=== PATIENT | female | born 1985 | race Caucasian/White ===

== ENCOUNTER 2016-11-21 04:42 | Outpatient (CLI) | payer OTHER ==
[~2016-11-21] VITALS: Ht 157.5 cm; Wt 74.0 kg
[2016-11-21 04:47] VITALS: Ht 157.5 cm; Wt 74.0 kg
[2016-11-21 05:12] VITALS: BP 120/70; PULSE 81; RESP 18
[2016-11-21] MEDS ORDERED: PRENAT PO (05:14)
--- NOTE | 2016-11-21 05:48 | HP ---
Date/Time of Note Date/Time of Note DATE: 11/21/16 TIME: 05:42 OB - History Hx of Present Free Text/Dictation OB Triage Pt is a 31yo at 37+6 by 15wk U/S presenting with c/o painful UCs since 023. Reports normal FM, denies LOF or VB. care has been with Dr. Trjuillo. Pt brought records with her. Estimated Due Date: Dec 06, 2016 : 4 Para: 2 Care: Good Care Ultrasounds: Normal mid trimester US Obstetrical Complications: None Medical Complications: None Other Concerns: PCN Allergy Past Family/Social History * Past Medical, Surgical, Family and Obstetric Histories reviewed from chart. Blood Type: O+ Rubella: immune RPR/VDRL: Negative GBS Status: Negative HBsAG: Negative OB Admission Exam Vital Signs Vital Signs Vital Signs Date Time Temp Pulse Resp B/P Pulse Ox O2 Delivery O2 Flow Rate FiO2 11/21/16 05:12 98.0 81 18 120/70 Room Air Physical Exam HEENT: WNL Heart: Rhythm Normal Lungs: Clear Abdomen: WNL Extremities: Normal Cervical Dilatation: 1cm Effacement: Other (70%) Station: -3 Membranes: Intact Heart Rate: 150's Accelerations: Accelerations Present Decelerations: No Decelerations (possible small variable when initially placed on monitor, however FHT thereafter is without decels) Varibility: Moderate Contractions on Admission: 6-10 Minutes Apart (5-6 min) OB Assessment/Plan Other Assessment: Early Labor Reactive NST GBS negative Other plan: Plan to d/c home given early stage of labor. Pt amenable to this. FWB reassuring GBS negative FKC, ROM, Labor precautions reviewed. Pt has f/up on 11/24/16 w/primary OB and she was advised to attend this appointment if she has not yet delivered by that time. Questions answered to pt and her partners satisfaction. NUBIA VILLEGAS MD Nov 21, 2016 05:48
== END 2016-11-21 05:47 | disposition home or self-care (01) ==
LOC: OBT 04:42 → L-D 04:43 → OBT 05:47
PROVIDERS: ATTEND Obstetrics & Gynecology
DX: O60.03 Preterm labor without delivery, third trimester (principal); Z3A.39 39 weeks gestation of pregnancy
CPT/HCPCS: G0463

== ENCOUNTER 2016-11-21 21:57 | Inpatient (IN) | payer OTHER ==
[~2016-11-21] VITALS: Ht 167.6 cm; Wt 74.3 kg
[~2016-11-21 21:57] MED LIST: PRENAT PO
[2016-11-21 22:03] VITALS: Ht 167.6 cm; Wt 74.3 kg
[2016-11-21 22:06] VITALS: BP 123/72; PULSE 85; RESP 18
[2016-11-22] MEDS ORDERED: METHYLERGONOVINE 0.2 MG INJ IM PRN ×2 (00:30→15:00)
[2016-11-22] MEDS ORDERED: MISOPROSTOL 200 MCG TAB PR PRN ×2 (00:30→15:00)
[2016-11-22] MEDS ORDERED: LIDOCAINE 1% (MPF) 30 ML INJ INJ PRN (00:30)
[2016-11-22] MEDS ORDERED: IBUPROFEN 600 MG TAB PO PRN (00:30)
[2016-11-22] MEDS ORDERED: CARBOPROST 250 MCG INJ IM PRN ×2 (00:30→15:00)
[2016-11-22] MEDS ORDERED: OXYTOCIN 30 UNITS/LR 500 ML IV PRN ×2 (00:30→15:00)
[2016-11-22] MEDS ORDERED: BUTORPHANOL 2 MG INJ IV PRN ×2 (00:30)
[2016-11-22] MEDS ORDERED: ACETAMINOPHEN/CODEINE #3 TAB PO PRN ×2 (00:30→15:00)
[2016-11-22] MEDS ORDERED: OXYTOCIN 30 UNITS/LR 500 ML IV SCH ×4 (00:30→15:00)
[2016-11-22] MEDS ORDERED: LACTATED RINGER'S 1,000 ML IV PRN (00:30)
[2016-11-22 01:05] LABS: PARTIAL THROMBOPLASTIN TIME 26.4 Sec (25.0-35.0)
[2016-11-22 01:27] LABS: INR 0.91; PROTIME 12.2 Sec (12.2-14.2)
[2016-11-22] MEDS: LACTATED RINGER'S 1,000 ML IV SCH ×4 (01:29→11:23)
[2016-11-22 01:36] LABS: HEMATOCRIT 39.1 % (37.0-47.0); HEMOGLOBIN 13.3 g/dl (12.0-16.0); MEAN CORPUSCULAR HEMOGLOBIN 31.5 pg (29.0-33.0); MEAN CORPUSCULAR VOLUME 92.7 fl (82.0-101.0); RED BLOOD COUNT 4.22 10^6/ul (4.20-5.40)
[2016-11-22 01:37] LABS: BASOPHILS % 0.2 % (0.0-2.0); EOSINOPHILS % 0.5 % (0.0-7.0); LYMPHOCYTES % 13.7 % (15.0-51.0); MEAN PLATELET VOLUME 11.8 fl (7.4-10.4); MONOCYTES % 7.5 % (0.0-11.0); NEUTROPHILS % 77.4 % (39.0-77.0); PLATELET COUNT 174 10^3/UL (140-440); RED CELL DISTRIBUTION WIDTH 12.2 % (11.5-14.5)
[2016-11-22 01:38] LABS: EOSINOPHILS # 0.1 10^3/ul (0.0-0.5); LYMPHOCYTES # 1.9 10^3/ul (0.8-2.9); MONOCYTE # 1.1 10^3/ul (0.3-0.9); NEUTROPHIL # 10.9 10^3/ul (1.6-7.5)
[2016-11-22] MEDS ORDERED: FENTAnyl 2MCG/ML-ROPIV 0.2% 100 ML ONE (02:00)
[2016-11-22] MEDS ORDERED: NALOXONE (0.4 MG/ML) INJ IV PRN (03:30)
[2016-11-22] MEDS ORDERED: FENTAnyl 2MCG/ML-ROPIV 0.2% 100 ML BAG EPI SCH (03:30)
[2016-11-22] MEDS: EPHEDrine SULFATE 50 MG/5 ML SYG IV PRN ×2 (04:31→04:40)
--- NOTE | 2016-11-22 12:59 | LDN ---
Date/Time of Note Date/Time of Note DATE: 11/22/16 TIME: 12:58 Delivery Summary Placenta Delivered: Spontaneously Perineum intact?: No (Please specify) Perineal laceration repair: primary laceratoin repaired with 3-0 chromic Anesthesia type: Epidural Sponge & Needle done & correct: Yes All needle counts correct: Yes Any foreign bodies felt in the: No Problems: BISI MCKEON MD Nov 22, 2016 12:59
[2016-11-22 14:30] VITALS: BP 133/83; PULSE 74; RESP 18
[2016-11-22] MEDS ORDERED: DIPHENHYDRAMINE 25 MG CAP PO PRN (15:00)
[2016-11-22] MEDS ORDERED: WITCH HAZEL/GLYCERIN PAD PR PRN (15:00)
[2016-11-22] MEDS ORDERED: LANOLIN 7 GM TUBE TOP PRN (15:00)
[2016-11-22] MEDS ORDERED: LACTATED RINGER'S 1,000 ML IV* SCH (15:00)
[2016-11-22] MEDS ORDERED: BENZOCAINE 20% 56 ML SPRAY TOP PRN (15:00)
[2016-11-22] MEDS: ACETAMINOPHEN/CODEINE #3 TAB PO PRN (15:24)
[2016-11-22 15:30] VITALS: BP 124/76; PULSE 84; RESP 18
[2016-11-22] MEDS: IBUPROFEN 600 MG TAB PO SCH (17:38)
[2016-11-22 20:00] VITALS: BP 99/66; PULSE 112; RESP 18
[2016-11-22] MEDS: SENNA/DOCUSATE NA (8.6MG/50MG) TAB PO SCH (21:46)
[2016-11-23] MEDS: IBUPROFEN 600 MG TAB PO SCH ×4 (00:19→17:46)
[2016-11-23 04:00] VITALS: BP 109/71; PULSE 96; RESP 18
[2016-11-23 08:10] VITALS: BP 115/74; PULSE 86; RESP 19
--- NOTE | 2016-11-23 09:34 | PN ---
Date/Time of Note Date/Time of Note DATE: 11/23/16 TIME: 09:34 OB Subjective Subjective Subjective Post day 1 Patient is doing well, Ambulatory She is afebrile Abdomen is soft , Fundus is firm Moderate amount of lochia Breasts are soft, Nipples are intact No calf tenderness. Perineum is healing well. Breast feeding the new born. Current Medications Medications (Trade) Dose Ordered Sig/Jasmin Route PRN Reason Start Time Stop Time Status Last Admin Dose Admin Lactated Ringer's 1,000 ml @ 125 mls/hr Q8H IV 11/22/16 00:22 11/22/16 15:04 DC 11/22/16 11:23 Oxytocin/Lactated Ringer's 500 ml @ 0 mls/hr TITRATE IV 11/22/16 00:30 11/22/16 15:04 DC 11/22/16 03:41 Butorphanol Tartrate (Stadol) 1 mg Q2H PRN IV PAIN 11/22/16 00:30 11/22/16 15:04 DC Butorphanol Tartrate (Stadol) 2 mg Q2H PRN IV PAIN 11/22/16 00:30 11/22/16 15:04 DC Lidocaine 30 ml 30 ml ONCE PRN INJ EPISIOTOMY/TEARING 11/22/16 00:30 11/22/16 15:04 DC Oxytocin/Lactated Ringer's 500 ml @ 125 mls/hr ONCE -MAY REPEAT X1 IV 11/22/16 00:30 11/22/16 15:04 DC Oxytocin/Lactated Ringer's 500 ml @ 125 mls/hr ONCE IV 11/22/16 00:30 11/22/16 15:04 DC 11/22/16 13:05 Ibuprofen (Motrin) 600 mg ONCE PRN PO Mild Pain (Pain Score 1-3) 11/22/16 00:30 11/22/16 15:04 DC Acetaminophen/ Codeine Phosphate 2 tab 2 tab ONCE PRN PO Moderate to Severe Pain (4-10) 11/22/16 00:30 11/22/16 15:04 DC Lactated Ringer's 1,000 ml @ 2,000 mls/hr Q30M PRN IV PRE-EPIDURAL BOLUS 11/22/16 00:30 11/22/16 15:04 DC 11/22/16 00:47 Oxytocin/Lactated Ringer's 500 ml @ 0 mls/hr ONCE PRN IV For Hemorrhage Management 11/22/16 00:30 11/22/16 15:04 DC Methylergonovine Maleate (Methergine) 0.2 mg ONCE PRN IM VAGINAL BLEEDING 11/22/16 00:30 11/22/16 15:05 DC Carboprost Tromethamine (Hemabate) 250 mcg ONCE PRN IM VAGINAL BLEEDING 11/22/16 00:30 11/22/16 15:05 DC Misoprostol 1000 mcg 1,000 mcg ONCE PRN MS VAGINAL BLEEDING 11/22/16 00:30 11/22/16 15:05 DC Fentanyl/ Ropivacaine 100 ml @ STK-MED ONCE .ROUTE 11/22/16 02:00 11/22/16 02:01 DC Naloxone HCl (Narcan) 0.2 mg Q2M PRN IV FOR RESP RATE 8 OR LESS 11/22/16 03:30 11/22/16 15:05 DC Fentanyl/ Ropivacaine 100 ml EPIDURAL (PCEA) EPI 11/22/16 03:30 11/22/16 15:05 DC 11/22/16 11:38 Ephedrine Sulfate 5 mg 5 mg PACU ORDER PRN IV MAP LESS THAN 60 11/22/16 03:30 11/22/16 08:00 DC 11/22/16 04:40 Oxytocin/Lactated Ringer's 500 ml @ 125 mls/hr Q4H IV 11/22/16 15:00 11/22/16 22:59 DC Lactated Ringer's (Lr) 1,000 ml @ 125 mls/hr Q8H IV* 11/22/16 15:00 11/22/16 17:25 Ibuprofen (Motrin) 600 mg Q6 PO 11/22/16 18:00 11/23/16 05:59 Acetaminophen/ Codeine Phosphate (Tylenol No.3) 1 tab Q4H PRN PO PAIN LEVEL 1-5 11/22/16 15:00 11/22/16 15:24 Acetaminophen/ Codeine Phosphate (Tylenol No.3) 2 tab Q4H PRN PO PAIN LEVEL 6-10 11/22/16 15:00 11/23/16 03:14 Diphenhydramine HCl (Benadryl) 25 mg Q6H PRN PO PRURITUS 11/22/16 15:00 Senna/Docusate Sodium (Senokot-S) 1 tab BID PO 11/22/16 21:00 11/22/16 21:46 Witch [place]/ Glycerin (Tucks Pads) 1 pad BEDSIDE MEDICATION PRN MS HEMORRHOID/EPISIOTMY PAIN 11/22/16 15:00 11/22/16 15:24 Benzocaine (Dermoplast [place]) 1 spray BEDSIDE MEDICATION PRN TOP HEMORRHOID/EPISIOTMY PAIN 11/22/16 15:00 11/22/16 15:24 Lanolin 1 applic 1 applic BEDSIDE MEDICATION PRN TOP BEDSIDE FOR TRUNG TO NIPPLES 11/22/16 15:00 11/22/16 15:24 Oxytocin/Lactated Ringer's 500 ml @ 0 mls/hr ONCE PRN IV For Hemorrhage Management 11/22/16 15:00 Methylergonovine Maleate (Methergine) 0.2 mg ONCE PRN IM VAGINAL BLEEDING 11/22/16 15:00 Carboprost Tromethamine (Hemabate) 250 mcg ONCE PRN IM VAGINAL BLEEDING 11/22/16 15:00 Misoprostol (Cytotec) 1,000 mcg ONCE PRN MS VAGINAL BLEEDING 11/22/16 15:00 Prenat Multivit/ [place]/Iron/Folic Ac ( S) 1 tab DAILY PO 11/23/16 09:00 Influenza Virus Vaccine (Fluzone) 0.5 ml ONCE ONCE IM* 11/23/16 16:00 11/23/16 16:01 CAMDEN FAM MD Nov 23, 2016 09:34
--- NOTE | 2016-11-23 09:38 | PN ---
Date/Time of Note Date/Time of Note DATE: 11/23/16 TIME: 09:36 OB Subjective Subjective Subjective Post day 1 Patient is doing well, Ambulatory She is afebrile Abdomen is soft , Fundus is firm Moderate amount of lochia Breasts are soft, Nipples are intact No calf tenderness. Perineum is healing well. Breast feeding the new born. Current Medications Medications (Trade) Dose Ordered Sig/Jasmin Route PRN Reason Start Time Stop Time Status Last Admin Dose Admin Lactated Ringer's 1,000 ml @ 125 mls/hr Q8H IV 11/22/16 00:22 11/22/16 15:04 DC 11/22/16 11:23 Oxytocin/Lactated Ringer's 500 ml @ 0 mls/hr TITRATE IV 11/22/16 00:30 11/22/16 15:04 DC 11/22/16 03:41 Butorphanol Tartrate (Stadol) 1 mg Q2H PRN IV PAIN 11/22/16 00:30 11/22/16 15:04 DC Butorphanol Tartrate (Stadol) 2 mg Q2H PRN IV PAIN 11/22/16 00:30 11/22/16 15:04 DC Lidocaine 30 ml 30 ml ONCE PRN INJ EPISIOTOMY/TEARING 11/22/16 00:30 11/22/16 15:04 DC Oxytocin/Lactated Ringer's 500 ml @ 125 mls/hr ONCE -MAY REPEAT X1 IV 11/22/16 00:30 11/22/16 15:04 DC Oxytocin/Lactated Ringer's 500 ml @ 125 mls/hr ONCE IV 11/22/16 00:30 11/22/16 15:04 DC 11/22/16 13:05 Ibuprofen (Motrin) 600 mg ONCE PRN PO Mild Pain (Pain Score 1-3) 11/22/16 00:30 11/22/16 15:04 DC Acetaminophen/ Codeine Phosphate 2 tab 2 tab ONCE PRN PO Moderate to Severe Pain (4-10) 11/22/16 00:30 11/22/16 15:04 DC Lactated Ringer's 1,000 ml @ 2,000 mls/hr Q30M PRN IV PRE-EPIDURAL BOLUS 11/22/16 00:30 11/22/16 15:04 DC 11/22/16 00:47 Oxytocin/Lactated Ringer's 500 ml @ 0 mls/hr ONCE PRN IV For Hemorrhage Management 11/22/16 00:30 11/22/16 15:04 DC Methylergonovine Maleate (Methergine) 0.2 mg ONCE PRN IM VAGINAL BLEEDING 11/22/16 00:30 11/22/16 15:05 DC Carboprost Tromethamine (Hemabate) 250 mcg ONCE PRN IM VAGINAL BLEEDING 11/22/16 00:30 11/22/16 15:05 DC Misoprostol 1000 mcg 1,000 mcg ONCE PRN VA VAGINAL BLEEDING 11/22/16 00:30 11/22/16 15:05 DC Fentanyl/ Ropivacaine 100 ml @ STK-MED ONCE .ROUTE 11/22/16 02:00 11/22/16 02:01 DC Naloxone HCl (Narcan) 0.2 mg Q2M PRN IV FOR RESP RATE 8 OR LESS 11/22/16 03:30 11/22/16 15:05 DC Fentanyl/ Ropivacaine 100 ml EPIDURAL (PCEA) EPI 11/22/16 03:30 11/22/16 15:05 DC 11/22/16 11:38 Ephedrine Sulfate 5 mg 5 mg PACU ORDER PRN IV MAP LESS THAN 60 11/22/16 03:30 11/22/16 08:00 DC 11/22/16 04:40 Oxytocin/Lactated Ringer's 500 ml @ 125 mls/hr Q4H IV 11/22/16 15:00 11/22/16 22:59 DC Lactated Ringer's (Lr) 1,000 ml @ 125 mls/hr Q8H IV* 11/22/16 15:00 11/22/16 17:25 Ibuprofen (Motrin) 600 mg Q6 PO 11/22/16 18:00 11/23/16 05:59 Acetaminophen/ Codeine Phosphate (Tylenol No.3) 1 tab Q4H PRN PO PAIN LEVEL 1-5 11/22/16 15:00 11/22/16 15:24 Acetaminophen/ Codeine Phosphate (Tylenol No.3) 2 tab Q4H PRN PO PAIN LEVEL 6-10 11/22/16 15:00 11/23/16 03:14 Diphenhydramine HCl (Benadryl) 25 mg Q6H PRN PO PRURITUS 11/22/16 15:00 Senna/Docusate Sodium (Senokot-S) 1 tab BID PO 11/22/16 21:00 11/22/16 21:46 Witch [place]/ Glycerin (Tucks Pads) 1 pad BEDSIDE MEDICATION PRN [place] HEMORRHOID/EPISIOTMY PAIN 11/22/16 15:00 11/22/16 15:24 Benzocaine (Dermoplast [place]) 1 spray BEDSIDE MEDICATION PRN TOP HEMORRHOID/EPISIOTMY PAIN 11/22/16 15:00 11/22/16 15:24 Lanolin 1 applic 1 applic BEDSIDE MEDICATION PRN TOP BEDSIDE FOR TRUNG TO NIPPLES 11/22/16 15:00 11/22/16 15:24 Oxytocin/Lactated Ringer's 500 ml @ 0 mls/hr ONCE PRN IV For Hemorrhage Management 11/22/16 15:00 Methylergonovine Maleate (Methergine) 0.2 mg ONCE PRN IM VAGINAL BLEEDING 11/22/16 15:00 Carboprost Tromethamine (Hemabate) 250 mcg ONCE PRN IM VAGINAL BLEEDING 11/22/16 15:00 Misoprostol (Cytotec) 1,000 mcg ONCE PRN VA VAGINAL BLEEDING 11/22/16 15:00 Prenat Multivit/ [place]/Iron/Folic Ac ( S) 1 tab DAILY PO 11/23/16 09:00 Influenza Virus Vaccine (Fluzone) 0.5 ml ONCE ONCE IM* 11/23/16 16:00 11/23/16 16:01 CAMDEN FAM MD Nov 23, 2016 09:38
[2016-11-23] MEDS: MULTIVIT/MIN/FOLATE/IRON/PREN TAB PO SCH (10:02)
[2016-11-23] MEDS: SENNA/DOCUSATE NA (8.6MG/50MG) TAB PO SCH ×2 (10:02→20:58)
[2016-11-23 12:34] LABS: BASOPHILS % 0.3 % (0.0-2.0); EOSINOPHILS # 0.2 10^3/ul (0.0-0.5); EOSINOPHILS % 1.4 % (0.0-7.0); HEMOGLOBIN 10.9 g/dl (12.0-16.0); LYMPHOCYTES # 1.9 10^3/ul (0.8-2.9); LYMPHOCYTES % 16.2 % (15.0-51.0); MEAN CORPUSCULAR HEMOGLOBIN 32.1 pg (29.0-33.0); MEAN CORPUSCULAR HGB CONC 34.2 g/dl (32.0-37.0); MEAN PLATELET VOLUME 10.9 fl (7.4-10.4); MONOCYTE # 0.8 10^3/ul (0.3-0.9); MONOCYTES % 6.6 % (0.0-11.0); NEUTROPHIL # 8.7 10^3/ul (1.6-7.5); NEUTROPHILS % 75.5 % (39.0-77.0); PLATELET COUNT 143 10^3/UL (140-440); RED BLOOD COUNT 3.41 10^6/ul (4.20-5.40); UNCORRECTED WBC 11.5 10^3/ul (4.8-10.8); WHITE BLOOD COUNT 11.5 10^3/ul (4.8-10.8)
[2016-11-23 12:38] LABS: CONDITION 1
[2016-11-23 15:50] VITALS: BP 99/62; PULSE 93; RESP 19
[2016-11-23] MEDS ORDERED: INFLUENZA VIRUS VACCINE 0.5 ML SYG IM* ONE (16:00)
[2016-11-23 19:45] VITALS: BP 104/62; PULSE 82; RESP 19
[2016-11-23] MEDS: ACETAMINOPHEN/CODEINE #3 TAB PO PRN (23:06)
[2016-11-24] MEDS: IBUPROFEN 600 MG TAB PO SCH ×3 (00:26→12:20)
[2016-11-24 04:00] VITALS: BP 109/67; PULSE 80; RESP 19
[2016-11-24 07:30] VITALS: BP 112/79; PULSE 80; RESP 18
[2016-11-24] MEDS ORDERED: BISACODYL 10 MG SUPP PR PRN (08:30)
--- NOTE | 2016-11-24 08:34 | PD.PPDC ---
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
--- NOTE | 2016-11-24 08:36 | DS ---
Date/Time of Note Date/Time of Note DATE: 11/24/16 TIME: 08:34 Obstetrical Discharge Record Final Diagnosis Final Diagnosis: Term delivered Vaginal Delivery Obstetrical Delivery: Spontaneous Complications Rupture of Membranes: No Condition on Discharge Physical Assessment Last Vitals: 98.0 109/67 80 19 Hgb 10.9 s/p EBL 150ml (admission Hgb 13.3) Voiding: Yes Bowel Movement: Yes Breast: Soft, non-tender Fundus: Firm Calf Tenderness: No Patient Condition: Good NUBIA VILLEGAS MD Nov 24, 2016 08:36
[2016-11-24] MEDS: MULTIVIT/MIN/FOLATE/IRON/PREN TAB PO SCH (09:10)
[2016-11-24] MEDS: SENNA/DOCUSATE NA (8.6MG/50MG) TAB PO SCH (09:10)
== END 2016-11-24 13:45 | disposition home or self-care (01) | DRG 775 ==
LOC: OBT 21:57 → L-D 21:59 → OBT 11-22 00:20 → L-D 11-22 00:20 → PP1 11-22 14:32
PROVIDERS: ADMIT Obstetrics & Gynecology; ATTEND Obstetrics & Gynecology
PROC: 10E0XZZ Delivery of Products of Conception, External Approach (ICD-10-PCS; principal; 2016-11-22)
PROC: 0HQ9XZZ Repair Perineum Skin, External Approach (ICD-10-PCS; 2016-11-22)
DX: O70.0 First degree perineal laceration during delivery (principal); Z37.0 Single live birth; Z3A.38 38 weeks gestation of pregnancy
CPT/HCPCS: 62319; 85025; 85610; 85730; 86592; 86900; 86901; 90686; G0463; J2590; J3010; J7120